=== PATIENT | female | born 1975 | race Caucasian/White ===

== ENCOUNTER 2018-08-02 00:15 | Inpatient (IN) ==
[2018-08-02] MEDS ORDERED: ONDANSETRON 4 MG/2 ML VIAL IV PRN ×2 (02:15→04:40)
[2018-08-02] MEDS ORDERED: IBUPROFEN 800 MG TABLET PO PRN ×2 (02:15→12:00)
[2018-08-02] MEDS ORDERED: ACETAMINOPHEN 325 MG TABLET PO PRN ×2 (02:15→04:37)
[2018-08-02] MEDS ORDERED: KETOROLAC 30 MG/1 ML VIAL IV PRN (02:15)
[2018-08-02] MEDS ORDERED: DEXTROSE 5% LACTATED RINGERS 1,000 ML IV SCH ×2 (02:30→05:00)
[2018-08-02 03:00] LABS: Bacteria Wet Mount Few /HPF; Epithelial Cell Wet Mount Few /HPF (Few/HPF); RBC Wet Mount Rare /HPF; Trichomonas Wet Mount None Seen /HPF (None Seen); WBC Wet Mount Few /HPF
[2018-08-02 03:01] LABS: Clue Cells Rare /HPF (None Seen); Yeast Wet Mount None Seen /HPF (None Seen)
[2018-08-02] MEDS ORDERED: cefOXitin 2,000 MG in SYRINGE 1 EACH IV SCH (04:00)
[2018-08-02] MEDS ORDERED: PNEUMOCOCCAL VACCINE (23 VALENT) 0.5 ML VIAL IM ONE (04:14)
[2018-08-02] MEDS ORDERED: KETOROLAC 30 MG/1 ML VIAL IV ONE (04:39)
[2018-08-02] MEDS: DOXYCYCLINE HYCLATE INJ 100 MG in SODIUM CHLORIDE 0.9% 100 ML IV SCH ×2 (04:58→17:20)
[2018-08-02] MEDS ORDERED: DOXYCYCLINE HYCLATE INJ 100 MG in SODIUM CHLORIDE 0.9% 100 ML IV SCH (05:00)
[2018-08-02 05:55] LABS: Basophils # 0.1 10*3/uL (0.0-0.2); Basophils % 0.2 % (0.0-0.8); Eosinophils # 0.1 10*3/uL (0.0-0.87); Eosinophils % 0.6 % (0.00-10.9); Hemoglobin 11.1 GM/DL (12.0-16.0); Immature Granulocytes % 0.8 %; Immature Granulocytes Absolute 0.18 #; Lymphocytes # 1.9 10*3/uL (1.4-4.0); Lymphocytes % 8.3 % (21.3-54.2); Mean Corpuscular HGB Conc 32.6 GM/DL (32-36); Mean Corpuscular Volume 96.6 FL (87-102); Mean Platelet Volume 12.7 FL (9.6-12.0); Neutrophils % 76.1 % (38.7-73.9); Platelet Count 243 T/CUMM (130-400); Red Blood Count 3.52 MC/CUMM (3.8-5.5); Red Cell Distribution Width 13.1 % (9.3-17.3); White Blood Count 22.7 T/CUMM (4-12)
[2018-08-02 06:18] LABS: Band Neutrophils 2 % (0-10); Eosinophils 1 % (0-10); Hypochromasia Slight; Lymphocytes 4 % (20-55); Platelet Estimate Adequate; Segmented Neutrophils 81 % (50-85); Total Cells Counted 100
[2018-08-02] MEDS ORDERED: LACTATED RINGERS 300 ML IV ONE (06:29)
[2018-08-02 06:46] LABS: Albumin 2.6 G/DL (3.4-5.0); Bilirubin,Total 0.4 MG/DL (0.2-1.0); Calcium 7.9 MG/DL (8.5-10.1); Osmolality,Calculated 275.4 MOS/KG (273-304); Total Protein 6.2 G/DL (6.4-8.3)
[2018-08-02] MEDS: LACTATED RINGERS 1,000 ML IV SCH ×3 (06:54→18:51)
[2018-08-02 06:56] LABS: Basophils # 0.1 10*3/uL (0.0-0.2); Basophils % 0.4 % (0.0-0.8); Eosinophils # 0.1 10*3/uL (0.0-0.87); Eosinophils % 0.5 % (0.00-10.9); Hematocrit 32.5 VOL% (35.7-47.0); Hemoglobin 10.3 GM/DL (12.0-16.0); Immature Granulocytes Absolute 0.19 #; Lymphocytes # 1.7 10*3/uL (1.4-4.0); Lymphocytes % 8.9 % (21.3-54.2); Mean Corpuscular HGB Conc 31.7 GM/DL (32-36); Mean Corpuscular Volume 98.5 FL (87-102); Mean Platelet Volume 11.7 FL (9.6-12.0); Monocytes % 11.4 % (1.7-12.7); Neutrophils % 77.8 % (38.7-73.9); Platelet Count 235 T/CUMM (130-400); Red Cell Distribution Width 12.9 % (9.3-17.3)
[2018-08-02] MEDS ORDERED: NOREPINEPHRINE 8 MG in SODIUM CHLORIDE 0.9% 242 ML IV PRN (06:56)
[2018-08-02] MEDS: PIPERACILLIN/TAZOBACTAM 3,375 MG in SODIUM CHLORIDE 0.9% 100 ML IV SCH ×2 (07:11→16:49)
[2018-08-02 07:20] LABS: Calcium 7.7 MG/DL (8.5-10.1); Osmolality,Calculated 278.3 MOS/KG (273-304)
[2018-08-02 07:24] LABS: Albumin 2.2 G/DL (3.4-5.0); Bilirubin,Total 0.5 MG/DL (0.2-1.0); Calcium 7.6 MG/DL (8.5-10.1); Osmolality,Calculated 277.3 MOS/KG (273-304); Total Protein 5.7 G/DL (6.4-8.3)
[2018-08-02] MEDS ORDERED: LACTATED RINGERS 1,000 ML IV ONE (07:58)
[2018-08-02] MEDS ORDERED: POTASSIUM CHLORIDE INJ 30 MEQ in LACTATED RINGERS 1,000 ML IV SCH (08:00)
[2018-08-02] MEDS ORDERED: GENTAMICIN INJ 120 MG in PREMIX 1 EACH IV SCH (08:30)
[2018-08-02] MEDS ORDERED: FAMOTIDINE 20 MG/2 ML VIAL IV SCH (09:00)
[2018-08-02] MEDS: FAMOTIDINE 20 MG/2 ML VIAL IV SCH ×2 (09:57→20:51)
[2018-08-02] MEDS: POTASSIUM CHLORIDE 20 MEQ TABLET PO SCH ×4 (10:42→20:52)
[2018-08-02] MEDS ORDERED: GENTAMICIN INJ 350 MG in SODIUM CHLORIDE 0.9% 100 ML IV SCH (11:30)
[2018-08-02 12:37] LABS: Basophils # 0.1 10*3/uL (0.0-0.2); Basophils % 0.3 % (0.0-0.8); Eosinophils # 0.1 10*3/uL (0.0-0.87); Eosinophils % 0.5 % (0.00-10.9); Hematocrit 34.6 VOL% (35.7-47.0); Hemoglobin 11.1 GM/DL (12.0-16.0); Immature Granulocytes % 0.9 %; Immature Granulocytes Absolute 0.16 #; Lymphocytes % 10.7 % (21.3-54.2); Mean Corpuscular HGB Conc 32.1 GM/DL (32-36); Mean Corpuscular Volume 98.3 FL (87-102); Mean Platelet Volume 13.1 FL (9.6-12.0); Monocytes % 11.6 % (1.7-12.7); Platelet Count 169 T/CUMM (130-400); Red Blood Count 3.52 MC/CUMM (3.8-5.5); White Blood Count 18.7 T/CUMM (4-12)
[2018-08-02 12:45] LABS: Hypochromasia 1+
[2018-08-02] MEDS: MEPERIDINE 25 MG/1 ML VIAL IV PRN ×6 (14:13→21:52)
[2018-08-02 18:20] LABS: Basophils # 0.1 10*3/uL (0.0-0.2); Basophils % 0.3 % (0.0-0.8); Eosinophils # 0.2 10*3/uL (0.0-0.87); Eosinophils % 0.9 % (0.00-10.9); Hematocrit 32.4 VOL% (35.7-47.0); Hemoglobin 10.1 GM/DL (12.0-16.0); Immature Granulocytes Absolute 0.17 #; Lymphocytes # 2.6 10*3/uL (1.4-4.0); Lymphocytes % 14.8 % (21.3-54.2); Mean Corpuscular HGB Conc 31.2 GM/DL (32-36); Mean Corpuscular Volume 99.7 FL (87-102); Mean Platelet Volume 11.7 FL (9.6-12.0); Monocytes % 11.7 % (1.7-12.7); Neutrophils % 71.3 % (38.7-73.9); Platelet Count 224 T/CUMM (130-400); Red Blood Count 3.25 MC/CUMM (3.8-5.5); Red Cell Distribution Width 13.1 % (9.3-17.3); White Blood Count 17.2 T/CUMM (4-12)
[2018-08-02 19:38] VITALS: BP 83/53
== END 2018-08-02 22:50 | disposition left against medical advice (07) | DRG 758 ==
LOC: EDBD → EDUNIT# → N.ED 00:15 → N.EDINP 02:46 → N.CC 02:58
PROVIDERS: ADMIT Obstetrics & Gynecology; ATTEND Obstetrics & Gynecology